=== PATIENT | female | born 1975 | race Caucasian/White ===

== ENCOUNTER 2016-10-07 12:31 | Emergency (ER) | payer BC ==
[~2016-10-07] VITALS: Ht 162.6 cm; Wt 69.0 kg
[2016-10-07 12:33] VITALS: BP 99/64; PULSE 95; RESP 15; TEMP 97.7; O2SAT 97
[2016-10-07 13:40] LABS: BLOOD, URINE TRACE (NEG); GLUCOSE,URINE NEG (NEG); KETONE, URINE NEG (NEG); NITRITE,URINE NEG (NEG); PH, URINE 6.5 (5.0-8.5)
[2016-10-07 13:48] LABS: COMMENT (UR) CULT NOT INDICATED; CULTURE IF INDICATED CULT NOT INDICATED; METHOD OF COLLECTION CLEAN CATCH; RBC, URINE 0-3 /hpf (0-3); SQUAMOUS EPITHELIAL CELL URINE 0-5 /hpf (0-5); URINE COLOR YELLOW (YELLW/STRAW); WBC, URINE 0-2 /hpf (0-5)
--- NOTE | 2016-10-07 14:19 | PD ---
HPI Chief Complaint: Related Problem Time Seen by Provider: 13:22 Travel History International Travel<30 days: No Contact w/Intl Traveler<30days: No Traveled to known affect area: No History of Present Illness HPI 41-year-old female states she is 8 weeks . 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 She is here visiting. She states she had an ultrasound before she left that showed a in the right area but no heart beat yet. She states she's having mild lower abdominal pain. Quality is pressure. She denies any vaginal bleeding or other complaints other than she feels like she's not having the other symptoms of that she was having such as nausea and tender breasts. PFSH Past Medical History Medical History: Denies Significant Hx Influenza Vaccination: No ?: LMP: 08/12/16 : 1 Para: 0 Miscarriage: 0 : 0 Past Surgical History Gynecologic Surgery: Yes (COLPOSCOPY) Social History Alcohol Use: No Tobacco Use: No Substance Use: No Allergies-Medications (Allergen,Severity, Reaction): Coded Allergies: Penicillin (Verified Allergy, Intermediate, HIVES, 10/07/16) Reported Meds & Prescriptions Reported Meds & Active Scripts Active Macrodantin (Nitrofurantoin Macrocrystal) 100 Mg Cap 100 Mg PO BID 5 Days Review of Systems Except as stated in HPI: all other systems reviewed are Neg Physical Exam Narrative GENERAL: Well-nourished, well-developed patient. Well-appearing SKIN: Warm and dry. HEAD: Normocephalic and atraumatic. EYES: No injection or drainage. ENT: No nasal drainage noted. NECK: Supple, trachea midline. CARDIOVASCULAR: Regular rate and rhythm RESPIRATORY: Breath sounds equal bilaterally at apices. No accessory muscle use. GASTROINTESTINAL: Abdomen soft, non-tender, nondistended. EXTREMITIES: No edema. NEUROLOGICAL: Awake and alert. Motor and sensory grossly within normal limits. Normal speech. Data Data Last Documented VS Vital Signs Date Time Temp Pulse Resp B/P Pulse Ox O2 Delivery O2 Flow Rate FiO2 10/07/16 15:47 85 16 103/71 100 10/07/16 12:33 97.7 Orders Beta Hcg (Quant/Titer) (10/07/16 13:22) Complete Blood Count With Diff (10/07/16 13:22) Basic Metabolic Panel (Bmp) (10/07/16 13:22) Complete Rh (10/07/16 13:22) Urinalysis - C+S If Indicated (10/07/16 13:22) Iv Access Insert/Monitor (10/07/16 13:22) Ecg Monitoring (10/07/16 13:22) Ed Urine Pregnancytest Poc (10/07/16 13:22) Us Pelvis (Ques Preg/Ectopic) (10/07/16 ) Urine Culture (10/07/16 16:41) Labs Laboratory Tests Test 10/07/16 10/07/16 13:30 13:55 Urine Collection Type CLEAN CATCH Urine Color YELLOW Urine Turbidity CLOUDY Urine pH 6.5 Urine Specific [place] 1.015 Urine Protein NEG mg/dL Urine Glucose (UA) NEG mg/dL Urine Ketones NEG mg/dL Urine Occult Blood TRACE Urine Nitrite NEG Urine Bilirubin NEG Urine Leukocyte Esterase LARGE Urine RBC 0-3 /hpf Urine WBC 0-2 /hpf Urine Squamous Epithelial 0-5 /hpf Cells Urine Amorphous Sediment MOD Microscopic Urinalysis Comment CULT NOT INDICATED White Blood Count 6.1 TH/MM3 Red Blood Count 3.93 MIL/MM3 Hemoglobin 12.1 GM/DL Hematocrit 35.7 % Mean Corpuscular Volume 91.0 FL Mean Corpuscular Hemoglobin 30.8 PG Mean Corpuscular Hemoglobin 33.8 % Concent Red Cell Distribution Width 11.9 % Platelet Count 190 TH/MM3 Mean Platelet Volume 9.7 FL Neutrophils (%) (Auto) 57.0 % Lymphocytes (%) (Auto) 33.4 % Monocytes (%) (Auto) 8.2 % Eosinophils (%) (Auto) 0.9 % Basophils (%) (Auto) 0.5 % Neutrophils # (Auto) 3.5 TH/MM3 Lymphocytes # (Auto) 2.0 TH/MM3 Monocytes # (Auto) 0.5 TH/MM3 Eosinophils # (Auto) 0.1 TH/MM3 Basophils # (Auto) 0.0 TH/MM3 CBC Comment DIFF FINAL Differential Comment Sodium Level 139 MEQ/L Potassium Level 3.9 MEQ/L Chloride Level 105 MEQ/L Carbon Dioxide Level 27.8 MEQ/L Anion Gap 6 MEQ/L Blood Urea Nitrogen 10 MG/DL Creatinine 0.50 MG/DL Estimat Glomerular Filtration 137 ML/MIN Rate Random Glucose 100 MG/DL Calcium Level 8.8 MG/DL Human Chorionic Gonadotropin, 42808 MIU/ML Quant Blood Type B POSITIVE Rho(D) Type POSITIVE MDM Medical Decision Making Medical Screen Exam Complete: Yes Emergency Medical Condition: Yes Medical Record Reviewed: Yes (past history confirmed) Interpretation(s) CBC & BMP Diagram 10/07/16 13:55 Last 24 hours Impressions Pelvis Ultrasound 10/07/16 0000 Signed Impressions: Service Date/Time: Friday, October 07, 2016 15:22 - CONCLUSION: Viable IUP a small uterine fibroid. K. Ilir Washington MD ua with [facility] blood- will give macrobid, will have send for culture Differential Diagnosis Miscarriage, threatened miscarriage, ectopic Narrative Course Will check blood work, pelvic ultrasound and urinalysis and reevaluate Patient denies any new complaints, patient given copy of ultrasound report. Patient happy with care, all questions answered. Patient knows that follow up is incumbent on them and to return to the emergency room immediately if new or worsening symptoms develop. Patient given strict return precautions, vitals reviewed and are normal, agrees to further workup as an outpatient. Diagnosis Primary Impression: Abdominal pain during Qualified Code: O26.891 - Abdominal pain during , first trimester Patient Instructions: General Instructions Additional Instructions: return as needed, follow with your ob this week, tylenol as needed Med/Other Pt SpecificInfo: Prescription(s) given Scripts Nitrofurantoin Macrocrystal (Macrodantin)100 Mg [id number] Mg PO BID 5 Days Prov:Venita Bocanegra MD 10/07/16 Disposition: 01 DISCHARGE HOME Condition: Stable Venita Bocanegra MD Oct 07, 2016 14:19
[2016-10-07 14:33] LABS: AUTOMATED NEUTROPHIL # 3.5 TH/MM3 (1.8-7.7); BASOPHIL % 0.5 % (0.0-2.0); EOSINOPHIL # 0.1 TH/MM3 (0-0.4); EOSINOPHIL % 0.9 % (0.0-4.0); HEMATOCRIT 35.7 % (35.0-46.0); HEMO FLAGS DIFF FINAL; LYMPH % 33.4 % (9.0-44.0); MEAN CORPUSCULAR HEMOGLOBIN 30.8 PG (27.0-34.0); MEAN CORPUSCULAR HGB CONC 33.8 % (32.0-36.0); MONO % 8.2 % (0.0-8.0); PLATELET COUNT 190 TH/MM3 (150-450); RED BLOOD COUNT 3.93 MIL/MM3 (4.00-5.30); RED CELL DISTRIBUTION WIDTH 11.9 % (11.6-17.2); WHITE BLOOD COUNT 6.1 TH/MM3 (4.0-11.0)
[2016-10-07 14:43] LABS: POTASSIUM 3.9 MEQ/L (3.5-5.1)
[2016-10-07 14:45] LABS: BICARBONATE 27.8 MEQ/L (21.0-32.0)
[2016-10-07 15:47] VITALS: BP 103/71; PULSE 85; RESP 16; O2SAT 100
[2016-10-07] MEDS ORDERED: MACR100C3 PO (16:27)
--- NOTE | 2016-10-07 16:30 | RADRPT ---
EXAM DATE/TIME: 10/07/2016 15:22 [facility] COMPARISON: No previous studies available for comparison. INDICATIONS : Spotting. LAB(S): [facility] MEDICAL HISTORY : . SURGICAL HISTORY : Tonsillectomy. ENCOUNTER: Initial ACUITY: 1 day PAIN SCORE: 0/10 LOCATION: Right pelvis MEASUREMENTS: UTERUS: 10.0 x 6.7 x 4.6 cm ENDOMETRIAL STRIPE: 15 mm RIGHT OVARY: 3.8 x 3.4 x 2.7 cm LEFT OVARY: 3.0 x 2.1 x 1.6 cm cm FREE FLUID: No CROWN RUMP LENGTH: 1.2 cm = 7 WKS 3 DAYS FHR: 136 BPM FINDINGS: Intrauterine gestational sac and pole is identified with heart 36 beats per minute. There is a fibroid within the uterus which measures 2.3 cm in size. CONCLUSION: Viable IUP a small uterine fibroid. Nila Washington MD on October 07, 2016 at 16:27 Board Certified Radiologist. This report was verified electronically.
== END 2016-10-07 16:59 | disposition home or self-care (01) ==
LOC: PHED 12:31
DX: O26.891 Other specified pregnancy related conditions, first trimester (principal); R10.30 Lower abdominal pain, unspecified; Z3A.08 8 weeks gestation of pregnancy; Z88.0 Allergy status to penicillin
CPT/HCPCS: 76700; 80048; 81001; 84702; 84703; 85025; 86901; 87086; 99284